=== PATIENT | female | born 1975 | race African-American/Black ===

== ENCOUNTER 2018-02-23 14:20 | Emergency (ER) | payer OTHER ==
[~2018-02-23] VITALS: Ht 172.7 cm; Wt 113.4 kg
[2018-02-23 14:36] LABS: URINE CLARITY CLEAR; URINE COLOR STRAW; URINE GLUCOSE-RANDOM* NEGATIVE (Negative); URINE KETONES NEGATIVE (Negative); URINE PROTEIN (DIPSTICK) NEGATIVE (Negative)
[2018-02-23 14:37] LABS: URINE BILIRUBIN NEGATIVE (Negative); URINE BLOOD NEGATIVE (Negative); URINE LEUKOCYTES-REFLEX NEGATIVE (Negative); URINE NITRITE-REFLEX NEGATIVE (Negative); URINE UROBILINOGEN 0.2 E.U./dl (0.2-1.0)
[2018-02-23 15:06] LABS: HEMATOCRIT 29.8 % (37.0-47.0); HEMOGLOBIN 8.8 gm/dL (12.0-15.0); MCH 18.7 pg (26.0-34.0)
[2018-02-23 15:08] LABS: MCHC 29.7 g/dL (28.0-37.0); MCV 62.8 fL (80.0-100.0); PLATELET COUNT 615 thou/uL (150-400); RBC 4.74 mil/uL (4.20-5.00); RDW 18.5 % (10.5-14.5); WBC 6.1 thou/uL (4.0-11.0)
[2018-02-23 15:13] LABS: CALCIUM 9.5 mg/dL (8.5-10.1); CREATININE 0.9 mg/dL (0.6-1.0); POTASSIUM 4.5 mmol/L (3.5-5.1)
[2018-02-23 15:18] LABS: ALBUMIN 3.7 g/dL (3.4-5.0); TOTAL BILIRUBIN 0.8 mg/dL (<0.1-1.0); TOTAL PROTEIN 8.2 g/dL (6.4-8.2)
[2018-02-23 15:35] LABS: ABSOLUTE NEUTROPHILS 4.3 thou/uL (1.4-8.2)
[2018-02-23 15:36] LABS: ANISOCYTOSIS 1+; HYPOCHROMASIA 2+; OVALOCYTES 1+; PLATELET ESTIMATE INCREASED
[2018-02-23] MEDS ORDERED: IRON325 PO (16:44)
[2018-02-23] MEDS ORDERED: NORCO 5-325 TA1 EACH PO (16:44)
[2018-02-23 17:42] VITALS: BP 96/49
== END 2018-02-23 17:42 | disposition home or self-care (01) ==
LOC: ER 14:20
PROVIDERS: Physician Assistant
DX: M54.5 Low back pain (principal); R10.31 Right lower quadrant pain; R10.32 Left lower quadrant pain; D64.9 Anemia, unspecified; Z88.2 Allergy status to sulfonamides

== ENCOUNTER 2018-12-23 22:37 | Emergency (ER) | payer OTHER ==
[~2018-12-23] VITALS: Ht 170.2 cm; Wt 127.0 kg
[~2018-12-23 22:37] MED LIST: IRON325 PO; NORCO 5-325 TA1 EACH PO
[2018-12-23] MEDS ORDERED: TIZANIDINE HCL 22 M1 PO (22:50)
[2018-12-23 23:33] LABS: CALCIUM 8.4 mg/dL (8.5-10.1); CREATININE 0.9 mg/dL (0.6-1.0)
[2018-12-24 00:37] LABS: URINE BILIRUBIN NEGATIVE (Negative); URINE BLOOD NEGATIVE (Negative); URINE CLARITY CLEAR; URINE COLOR YELLOW; URINE GLUCOSE-RANDOM* NEGATIVE (Negative); URINE KETONES NEGATIVE (Negative); URINE NITRITE-REFLEX NEGATIVE (Negative); URINE PROTEIN (DIPSTICK) NEGATIVE (Negative); URINE SPECIFIC GRAVITY 1.015 (1.005-1.035); URINE UROBILINOGEN 0.2 E.U./dl (0.2-1.0)
[2018-12-24 00:42] LABS: URINE LEUKOCYTES-REFLEX 2+ (Negative)
[2018-12-24 00:52] VITALS: BP 98/49
[2018-12-24] MEDS ORDERED: ZANAFLEX2 M1 PO (00:56)
[2018-12-24 00:58] LABS: HEMATOCRIT 30.1 % (37.0-47.0); HEMOGLOBIN 9.2 gm/dL (12.0-15.0); MCH 23.4 pg (26.0-34.0); MCHC 30.5 g/dL (28.0-37.0); MCV 76.6 fL (80.0-100.0); RBC 3.93 mil/uL (4.20-5.00); RDW 20.6 % (10.5-14.5); WBC 5.3 thou/uL (4.0-11.0)
[2018-12-24 01:05] LABS: BACTERIA-REFLEX 1-9 Few /HPF (None Seen); CASTS None Seen /LPF (None Seen); CRYSTALS None Seen /LPF (None Seen); MUCUS 0-3 Light strn/LPF (None Seen); SQUAMOUS 4-10 Moderate /LPF (0-3); URINE RBC 0-2 Rare /HPF (0-2)
[2018-12-24] MEDS ORDERED: CEFUROXIME250 MG PO (01:27)
== END 2018-12-24 01:10 | disposition home or self-care (01) ==
LOC: ER 22:37
PROVIDERS: Emergency Medicine Emergency Medical Services
DX: D25.9 Leiomyoma of uterus, unspecified (principal); R11.2 Nausea with vomiting, unspecified; Z98.84 Bariatric surgery status; Z88.2 Allergy status to sulfonamides

== ENCOUNTER 2019-01-07 22:45 | Emergency (ER) | payer OTHER ==
[~2019-01-07] VITALS: Ht 170.2 cm; Wt 130.6 kg
[~2019-01-07 22:45] MED LIST changes: +CEFUROXIME250 MG PO; +TIZANIDINE HCL 22 M1 PO; +ZANAFLEX2 M1 PO
[2019-01-08] MEDS ORDERED: ZPAK PO (00:26)
[2019-01-08 00:56] VITALS: BP 148/89
== END 2019-01-08 00:57 | disposition home or self-care (01) ==
LOC: ER 22:45
DX: J20.9 Acute bronchitis, unspecified (principal); J06.9 Acute upper respiratory infection, unspecified; Z88.2 Allergy status to sulfonamides; Z79.899 Other long term (current) drug therapy

== ENCOUNTER 2019-02-25 13:14 | Emergency (ER) | payer OTHER ==
[~2019-02-25] VITALS: Ht 170.2 cm; Wt 130.6 kg
[~2019-02-25 13:14] MED LIST changes: +ZPAK PO
[2019-02-25 14:18] VITALS: BP 155/61
== END 2019-02-25 14:55 | disposition home or self-care (01) ==
LOC: ER 13:14
DX: M25.561 Pain in right knee (principal); M79.644 Pain in right finger(s); Z88.2 Allergy status to sulfonamides

== ENCOUNTER 2019-07-27 15:46 | Emergency (ER) | payer OTHER ==
[~2019-07-27] VITALS: Ht 170.2 cm; Wt 117.9 kg
[2019-07-27 16:13] LABS: WBC 4.3 thou/uL (4.0-11.0)
[2019-07-27 16:15] LABS: HEMATOCRIT 27.9 % (37.0-47.0); HEMOGLOBIN 8.8 gm/dL (12.0-15.0); MCH 22.3 pg (26.0-34.0); MCHC 31.4 g/dL (28.0-37.0); MCV 71.2 fL (80.0-100.0); PLATELET COUNT 550 thou/uL (150-400); RBC 3.93 mil/uL (4.20-5.00); RDW 15.6 % (10.5-14.5)
[2019-07-27 16:30] LABS: CALCIUM 8.3 mg/dL (8.5-10.1); CREATININE 0.9 mg/dL (0.6-1.0); POTASSIUM 3.7 mmol/L (3.5-5.1)
[2019-07-27 16:34] LABS: ALBUMIN 3.1 g/dL (3.4-5.0); TOTAL BILIRUBIN 0.5 mg/dL (0.2-1.0)
[2019-07-27 16:46] LABS: ABSOLUTE NEUTROPHILS 1.6 thou/uL (1.4-8.2)
[2019-07-27 16:54] LABS: HYPOCHROMASIA 2+; MICROCYTES 1+; PLATELET ESTIMATE INCREASED
[2019-07-27 17:00] LABS: URINE BILIRUBIN NEGATIVE (Negative); URINE BLOOD NEGATIVE (Negative); URINE CLARITY CLEAR; URINE COLOR YELLOW; URINE GLUCOSE-RANDOM* NEGATIVE (Negative); URINE KETONES NEGATIVE (Negative); URINE LEUKOCYTES-REFLEX 2+ (Negative); URINE NITRITE-REFLEX NEGATIVE (Negative); URINE PROTEIN (DIPSTICK) NEGATIVE (Negative); URINE UROBILINOGEN 0.2 E.U./dl (0.2-1.0)
[2019-07-27 17:11] LABS: SQUAMOUS >10 Many /LPF (0-3)
[2019-07-27 17:13] LABS: BACTERIA-REFLEX 1-9 Few /HPF (None Seen); CASTS None Seen /LPF (None Seen); CRYSTALS None Seen /LPF (None Seen); URINE RBC None Seen /HPF (0-2); URINE WBC-REFLEX 0-5 Rare /HPF (0-5); YEAST-REFLEX Present (None Seen)
[2019-07-27] MEDS ORDERED: ULTRAM 50MG TAB50 MG PO (17:44)
[2019-07-27] MEDS ORDERED: DIFLUCAN150 MG PO (17:44)
[2019-07-27 17:54] VITALS: BP 114/63
== END 2019-07-27 17:54 | disposition home or self-care (01) ==
LOC: ER 15:46
PROVIDERS: Emergency Medicine
DX: R10.2 Pelvic and perineal pain (principal); B37.9 Candidiasis, unspecified; Z88.2 Allergy status to sulfonamides; Z79.899 Other long term (current) drug therapy

== ENCOUNTER 2019-10-05 12:48 | Emergency (ER) | payer OTHER ==
[~2019-10-05] VITALS: Ht 170.2 cm; Wt 117.9 kg
[~2019-10-05 12:48] MED LIST changes: +DIFLUCAN150 MG PO; +ULTRAM 50MG TAB50 MG PO
[2019-10-05] MEDS ORDERED: APAP W/CODEINE1 TA2 PO (13:49)
[2019-10-05 13:55] VITALS: BP 110/35
== END 2019-10-05 13:55 | disposition home or self-care (01) ==
LOC: ER 12:48
DX: D25.9 Leiomyoma of uterus, unspecified (principal); Z79.899 Other long term (current) drug therapy; Z88.2 Allergy status to sulfonamides

== ENCOUNTER 2020-05-20 21:02 | Emergency (ER) | payer BC, OTHER ==
[~2020-05-20] VITALS: Ht 170.2 cm; Wt 131.5 kg
[~2020-05-20 21:02] MED LIST changes: +APAP W/CODEINE1 TA2 PO
[2020-05-20 22:45] LABS: URINE BILIRUBIN NEGATIVE (Negative); URINE BLOOD NEGATIVE (Negative); URINE CLARITY CLEAR; URINE COLOR YELLOW; URINE GLUCOSE-RANDOM* NEGATIVE (Negative); URINE KETONES NEGATIVE (Negative); URINE NITRITE-REFLEX NEGATIVE (Negative); URINE PROTEIN (DIPSTICK) NEGATIVE (Negative); URINE UROBILINOGEN 0.2 E.U./dl (0.2-1.0)
[2020-05-20 22:50] LABS: URINE LEUKOCYTES-REFLEX 1+ (Negative)
[2020-05-20 22:51] LABS: HEMOGLOBIN 7.5 gm/dL (12.0-15.0)
[2020-05-20 22:53] LABS: ABSOLUTE NEUTROPHILS 5.9 thou/uL (1.4-8.2); BASOPHILS 0.8 % (0.0-2.0); EOSINOPHILS 2.3 % (0.0-3.0); HEMATOCRIT 26.3 % (37.0-47.0); LYMPHOCYTES 19.4 % (24.0-44.0); MCH 18.2 pg (26.0-34.0); MCHC 28.5 g/dL (28.0-37.0); MONOCYTES 6.6 % (1.0-8.0); PLATELET COUNT 519 thou/uL (150-400); POLYS 70.9 % (36.0-66.0); RDW 17.9 % (10.5-14.5); WBC 8.3 thou/uL (4.0-11.0)
[2020-05-20 23:08] LABS: BACTERIA-REFLEX 1-9 Few /HPF (None Seen); CASTS None Seen /LPF (None Seen); CRYSTALS None Seen /LPF (None Seen); MUCUS 0-3 Light strn/LPF (None Seen); SQUAMOUS 4-10 Moderate /LPF (0-3); URINE RBC 0-2 Rare /HPF (0-2); URINE WBC-REFLEX 6-15 Few /HPF (0-5)
[2020-05-20 23:09] LABS: CALCIUM 8.8 mg/dL (8.5-10.1); CREATININE 0.9 mg/dL (0.6-1.0); POTASSIUM 3.7 mmol/L (3.5-5.1)
[2020-05-21] MEDS ORDERED: FLEXERIL PO (00:27)
[2020-05-21 00:49] VITALS: BP 136/55
== END 2020-05-21 00:32 | disposition home or self-care (01) ==
LOC: ER 21:02
PROVIDERS: Emergency Medicine
DX: D25.9 Leiomyoma of uterus, unspecified (principal); R10.2 Pelvic and perineal pain; Z88.2 Allergy status to sulfonamides; Z79.899 Other long term (current) drug therapy

== ENCOUNTER 2020-12-13 12:36 | Emergency (ER) | payer OTHER ==
[~2020-12-13] VITALS: Ht 175.3 cm; Wt 127.0 kg
[~2020-12-13 12:36] MED LIST changes: +FLEXERIL PO
[2020-12-13 13:58] LABS: ABSOLUTE NEUTROPHILS 4.1 thou/uL (1.4-8.2); BASOPHILS 0.5 % (0.0-2.0); EOSINOPHILS 1.3 % (0.0-3.0); HEMATOCRIT 34.7 % (37.0-47.0); HEMOGLOBIN 10.9 gm/dL (12.0-15.0); LYMPHOCYTES 23.5 % (24.0-44.0); MCH 24.2 pg (26.0-34.0); MCHC 31.3 g/dL (28.0-37.0); MCV 77.3 fL (80.0-100.0); MONOCYTES 8.1 % (1.0-8.0); PLATELET COUNT 490 thou/uL (150-400); POLYS 66.6 % (36.0-66.0); RBC 4.49 mil/uL (4.20-5.00); RDW 15.3 % (10.5-14.5); WBC 6.2 thou/uL (4.0-11.0)
[2020-12-13 14:08] LABS: CREATININE 0.9 mg/dL (0.6-1.0); POTASSIUM 4.2 mmol/L (3.5-5.1)
[2020-12-13 14:19] LABS: ALBUMIN 3.5 g/dL (3.4-5.0); TOTAL BILIRUBIN 0.9 mg/dL (0.2-1.0); TOTAL PROTEIN 7.6 g/dL (6.4-8.2)
[2020-12-13] MEDS ORDERED: NAPROSYN500 MG PO (18:10)
[2020-12-13 18:15] VITALS: BP 129/87
== END 2020-12-13 18:15 | disposition home or self-care (01) ==
LOC: ER 12:36
PROVIDERS: Nurse Practitioner
DX: K43.9 Ventral hernia without obstruction or gangrene (principal); Z98.890 Other specified postprocedural states; Z79.899 Other long term (current) drug therapy; Z88.2 Allergy status to sulfonamides

== ENCOUNTER → 2021-01-21 | Day surgery (SDC) | payer OTHER ==
[~2021-01-21] VITALS: Ht 172.7 cm; Wt 137.9 kg
[~2021-01-21] MED LIST changes: +NAPROSYN500 MG PO; +NORCO5 PO
[2021-01-21 12:18] LABS: CALCIUM 8.9 mg/dL (8.5-10.1); CREATININE 0.8 mg/dL (0.6-1.0)
[2021-01-21 15:33] VITALS: BP 103/59
[2021-01-21 17:05] VITALS: BP 103/59
--- NOTE | 2021-01-25 08:56 | O ---
[facility] [place] [address] OPERATIVE REPORT Name: ONIEL GONZALEZ Room #: REG [facility] [place] M.Timmy.#: [id number] Admission: 01/21/21 Attend Phys: Yousuf Leung, Discharge: Date of : 71 Report #: [id number] THIS REPORT FOR: cc: FAM - No family physician/PCP FAM - No family physician/PCP Yousuf Leung MD ~ DATE OF SERVICE: 01/21/2021 PREOPERATIVE DIAGNOSIS: Incarcerated ventral incisional hernia. POSTOPERATIVE DIAGNOSIS: Incarcerated ventral incisional hernia. OPERATION: Laparoscopic repair of incarcerated ventral incisional hernia with mesh. SURGEON: Yousuf Leung MD ANESTHESIA: General. ESTIMATED BLOOD LOSS: Minimal. SPECIMENS: Hernia sac. DESCRIPTION OF PROCEDURE: After informed consent was obtained, the patient was brought to the operating room and placed supine. SCDs were placed and working, preoperative antibiotics were administered, general anesthesia was induced. The abdomen was prepped and draped in the usual sterile fashion. A 5 mm incision was made in the left upper quadrant. A 5 mm trocar was placed under direct vision. Pneumoperitoneum was established. I then placed a left-sided 5 mm port and a right-sided 8 mm trocar. She had about a 4 cm umbilical hernia defect. This was above the umbilicus at a previous trocar site. I incised the hernia sac and was able to reduce it fully. I excised the hernia sac and sent that off as specimen. Defect measured approximately 4 cm at this time. I then inserted a 15 cm Parietene DS mesh. It was brought up to abdominal wall using the sutures that came on the mesh. A PMI suture passer was used to grasp the sutures and bring it up to the abdominal wall. Then, I used 30 absorbable tacks to tack the mesh to the abdominal wall. I tied the sutures down to provide transfascial fixation as well. The mesh was nice and flat and covered the defect widely. The ports were then removed under direct vision. The skin was closed with 4-0 Monocryl. Incisions were dressed with Steri-Strips. [facility] [address] [place] [address] OPERATIVE REPORT Name: ONIEL GONZALEZ MARCELLOJuan Room #: REG [facility].#: [id number] Admission: 01/21/21 Attend Phys: Yousuf Leung, Discharge: Date of : 71 Report #: [id number] COMPLICATIONS: None. DISPOSITION: The patient was taken to recovery in satisfactory condition. <ELECTRONICALLY SIGNED> By: Yousuf Leung MD 01/25/21 [id number] Yousuf Leung MD /nt
--- NOTE | 2021-01-25 09:08 | PATH ---
[facility] [address] [place] [address] PATHOLOGY RPT PROCEDURE Name: ONIEL ALVARESXENIAJuan Room #: REG [facility] [place] M.R.#: [id number] Admission: 01/21/21 Date of : 71 Discharge: Report #: [id number] Path Case #: [id number] [facility] Accession Number: [id number] . 01 Material submitted: . hernia - VENTRAL HERNIA SAC . 01 Clinician provided ICD-10: K43.9 . 01 Clinical history: . LAPAROSCOPIC HERNIA REPAIR/VENTRAL . 01 Diagnosis: Fibroadipose tissue, "ventral hernia sac, herniorrhaphy": - Fibroadipose tissue revealing chronic inflammation and congestion consistent with hernial sac. (SHA:ike; 01/24/2021) [facility] 01/24/2021 [facility] Local . 01 Electronically signed: . Chris Gayle MD, Pathologist NPI- [id number] . 01 Gross description: . Received in formalin labeled "Alvares, Padgit, ventral hernia sac" is a ragged portion of honeycutt-pink membranous tissue and yellow-honeycutt lobulated tissue measuring 7.0 x 6.5 x 2.3 cm. The specimen is sectioned to reveal focally fibrotic cut surfaces. No masses are identified. Training Assistant tissue is submitted in A1. [place] 01/23/2021) [facility] 01/23/2021 1157 Local . 01 Pathologist provided ICD-10: K43.9 . 01 CPT . 378520 Specimen Comment: A courtesy copy of this report has been sent to [phone] Specimen Comment: Report sent to Specimen Comment: A duplicate report has been generated due to demographic updates. [facility]formed at: [facility] [address] [facility] [address], [place] [id number] MD Chris Gayle MD Phone: [phone]
== END | disposition home or self-care (01) ==
LOC: OR 01-19 13:12
PROVIDERS: ATTEND Surgery
DX: K43.0 Incisional hernia with obstruction, without gangrene (principal); R10.9 Unspecified abdominal pain; Z98.890 Other specified postprocedural states; Z98.84 Bariatric surgery status; Z20.822 Contact with and (suspected) exposure to COVID-19; Z88.2 Allergy status to sulfonamides
CPT/HCPCS: 50010; 50101; 50386; 50555; 52265; 52266; 53307; 54022; 56524; 56525; 56526; 57092; 57257; 58574; 59023; 59031; 62110; 62900; 70005

== ENCOUNTER 2021-01-24 23:07 | Inpatient (IN) | payer OTHER ==
[~2021-01-24] VITALS: Ht 170.2 cm; Wt 139.7 kg
[2021-01-24 23:10] VITALS: BP 114/67
[2021-01-24] MEDS ORDERED: NAPROSYN500 MG PO (23:19)
[2021-01-25 00:08] LABS: ABSOLUTE NEUTROPHILS 4.8 thou/uL (1.4-8.2); BASOPHILS 0.6 % (0.0-2.0); EOSINOPHILS 1.7 % (0.0-3.0); HEMATOCRIT 31.4 % (37.0-47.0); HEMOGLOBIN 9.6 gm/dL (12.0-15.0); LYMPHOCYTES 24.7 % (24.0-44.0); MCH 23.7 pg (26.0-34.0); MCHC 30.7 g/dL (28.0-37.0); MONOCYTES 8.4 % (1.0-8.0); PLATELET COUNT 475 thou/uL (150-400); POLYS 64.6 % (36.0-66.0); RBC 4.07 mil/uL (4.20-5.00); RDW 15.4 % (10.5-14.5); WBC 7.5 thou/uL (4.0-11.0)
[2021-01-25 00:11] LABS: CALCIUM 8.4 mg/dL (8.5-10.1); CREATININE 0.9 mg/dL (0.6-1.0); POTASSIUM 3.9 mmol/L (3.5-5.1)
[2021-01-25 00:17] LABS: ALBUMIN 3.3 g/dL (3.4-5.0); TOTAL BILIRUBIN 0.5 mg/dL (0.2-1.0)
[2021-01-25 05:24] VITALS: BP 136/74
== END 2021-01-25 08:15 | disposition left against medical advice (07) | DRG 395 ==
LOC: ER 23:07 → EROBS 01-25 02:01 → ER 01-25 02:01 → EROBS 01-25 08:15
PROVIDERS: Emergency Medicine; ADMIT Surgery; ATTEND Surgery
DX: K43.2 Incisional hernia without obstruction or gangrene (principal); Z53.29 Procedure and treatment not carried out because of patient's decision for other reasons; Z88.2 Allergy status to sulfonamides; Z90.3 Acquired absence of stomach [part of]; Z98.84 Bariatric surgery status